=== PATIENT | female | born 2000 | race Caucasian/White ===

== ENCOUNTER 2023-02-04 20:46 | Inpatient (IN) | payer MEDICAID, SELFPAY ==
[2023-02-04 20:47] VITALS: BP 146/74; PULSE 86; RESP 18; TEMP 36.7; O2SAT 99; BMI 33.6
--- NOTE | 2023-02-04 20:58 | EDS_ITS ---
HPI History of Present Illness Chief Complaint: Substance Abuse Narrative Narrative: Patient is requesting detox from fentanyl, she uses daily, she was seen and given a prescription for buprenorphine and naloxone however she does not trust herself to go home. She did use today. She has no somatic complaints. She is denying , she is actually on her menstrual cycle. PFSH PFSH Allergy/AdvReac Type Severity Reaction Status Date / Time No Known Allergies Allergy Verified 02/04/23 20:49 ROS ROS ED ROS Narrative Past medical history: Reviewed Medications: Reviewed Social history: Noncontributory Review of systems: All systems negative except as indicated General: No fever Eyes: No visual changes ENT: No upper airway congestion, normal voice Neck: No neck pain Cardiovascular: No chest pain Respiratory: No shortness of breath or cough Gastrointestinal: No abdominal pain, nausea vomiting or diarrhea Genitourinary: No dysuria Musculoskeletal: Denies myalgias no difficulty with ambulation Skin: No rash Neurological: No memory loss, confusion or any focal weakness Psych: No recent behavioral changes Hematologic: No easy bleeding or easy bruising EXAM Physical Exam Narrative Exam Narrative: Physical exam General: Well nourished, Well developed, No Acute Distress, smells of THC on her Head: Normocephalic, Atraumatic Eyes: Conjunctiva not pale ENT: Moist mucous membranes Neck: Supple, Nontender, No lymphadenopathy Cardiovascular: Regular rate, Regular rhythm Respiratory: No distress, CTA bilaterally Abdomen: Soft, Nontender, Nondistended Back: Nontender, Normal Inspection. Negative for: CVA tenderness Extremities: Nontender, No edema Skin: Normal color, No rash Neurological: Alert, Normal Strength, Normal Sensation Psychological: Normal affect Const Vital Signs: 02/04/23 20:47 Temperature 98.0 F Temperature Source Temporal Pulse Rate 86 Respiratory Rate 18 Blood Pressure 146/74 H Blood Pressure Mean 98 Pulse Ox 99 Oxygen Delivery Method Room Air MDM MDM MDM Narrative Medical decision making narrative: Patient will be medically cleared and screened for toxin alcohol. At this time she is requesting detox which our hospital does offer. I will call the hospitalist evaluation. She has no history of trauma therefore CT of the head is not warranted. At this time she has normal vitals and does not appear in acute withdrawal therefore I will not treat her withdrawal at this time. Discharge Plan Triage Chief Complaint: Substance Abuse ED Provider: Sanjeev Pond Dx/Rx/DC Orders Clinical Impression: Desire for detoxification, Opiate addiction, Drug abuse Primary Care Provider: NOT,DEFINED Referrals: NOT,DEFINED [Primary Care Provider] - Disposition Disposition: Acute Care Hospital [facility]
[2023-02-04 21:31] LABS: Absolute Lymphocyte Count 1.13 X10^3/uL (0.83-4.51); Absolute Neutrophil Count 5.4 X10^3/uL (2.0-7.7); Basophil# 0.01 X10^3/uL; Basophil% 0.1 % (0-1); Eosinophil# 0.03 X10^3/uL; Eosinophils% 0.4 % (0-5); Hematocrit 33.5 % (37-47); Hemoglobin 10.3 g/dL (12.0-15.0); Lymphocyte # 1.13 X10^3/ul (0.83-4.51); Lymphocyte % 16.3 % (19-41); Mean Corp Hgb Conc 30.7 g/dL (32-36); Mean Corpuscular Hgb 24.8 pg (27.0-32.0); Mean Corpuscular Volume 80.7 fL (81-99); Mean Platelet Vol. 10.5 fl (6.2-12.0); Monocyte# 0.31 X10^3/uL; Monocyte% 4.5 % (0-10); NRBC Flagged by Analyzer 0 % (0-5); Neutrophil # 5.44 X10^3/uL (2.7-7.7); Neutrophil % 78.4 % (47-70); Platelet Count 230 K/mm3 (150-450); Red Blood Count 4.15 M/mm3 (4.2-5.4); White Blood Count 6.9 K/mm3 (4.4-11.0)
[2023-02-04 21:43] LABS: Amphetamine Urine VISTA NEGATIVE (<1000 ng/mL); Barbiturate Urine VISTA NEGATIVE (< 200 ng/mL); Benzodiazepine Urine VISTA NEGATIVE (< 200 ng/mL); Cocaine Urine VISTA POSITIVE (< 300 ng/mL); Ecstacy Urine VISTA NEGATIVE (< 500 ng/mL); Methadone Urine VISTA NEGATIVE (< 300 ng/mL); PCP Urine VISTA NEGATIVE (< 25 ng/mL); THC Urine VISTA POSITIVE (< 50 ng/mL); Vista UDS pH Range 6
[2023-02-04 21:44] LABS: Anion Gap 8 (5-15); BUN 19 mg/dL (7-18); BUN/Creat Ratio 18.8 RATIO (10-20); Calcium,Total 8.8 mg/dL (8.5-10.1); Chloride 105 mmol/L (98-107); Creatinine, Serum 1.01 mg/dL (0.55-1.02); EST Glomerular Filtration Rate 72 mL/min (>60); Est Glom Filt Rate - Afr Amer 87 mL/min (>60); Estimated Creatinine Clearance 71.66 ml/min; Glucose 80 mg/dL (74-106); Potassium 3.7 mmol/L (3.5-5.1); Sodium Level 141 mmol/L (136-145)
[2023-02-04 21:56] LABS: Internal QC Validated? YES +Cl - CLEAR BKGD; Pregnancy, Serum, hCG Quali. NEGATIVE Negative
[2023-02-04 22:04] LABS: Alcohol, Blood (Medical)-Serum < 3.0 mg/dL
--- NOTE | 2023-02-04 22:08 | PCM.HP.STD ---
HPI - General General Date of Admission: 02/04/23 Date of Service: 02/04/23 Chief Complaint: Desire for detoxification HPI Narrative MARY KELLY, is a 22 F with a significant history of opiate who presents to the emergency department for help with opioid detoxification. Patient has been using fentanyl. Reportedly she smokes fentanyl and the last time of smoking the fentanyl was the night before presentation. She started smoking fentanyl 3 weeks ago since her mom's who has passed has a birthday coming up. Of note patient went to the [facility] in [place], [place] where she was giving Subutex. However because the [facility] is outpatient she did not want so she proceeded to the emergency department of [facility] for an inpatient program.. She reports smoking about half a gram of fentanyl daily. She reports withdrawal symptoms of tingling sensation all over her body. [facility] Medical History no medical history no medical history Home Medications NK 02/04/23 [History Last Taken Unknown] Allergy/AdvReac Type Severity Reaction Status Date / Time No Known Allergies Allergy Verified 02/04/23 20:49 Family History other other (She denies knowledge of family medical history and does not want to talk about what killed her mom.) Surgical History (Updated 02/04/23 @ 22:[address] Jose Hilton MD) H/O elbow surgery Social History Smoking Status: Current every day smoker tobacco type: cigarettes ROS ROS Narrative Pertinent positives and pertinent negatives as noted in HPI. All other systems were reviewed and are negative Vital Signs Vital Signs Vital Signs: 02/04/23 20:47 Temperature 98.0 F Temperature Source Temporal Pulse Rate 86 Respiratory Rate 18 Blood Pressure 146/74 H Blood Pressure Mean 98 Pulse Ox 99 Oxygen Delivery Method Room Air Weight Weight: 86.2 kg Body Mass Index (BMI) 33.6 Physical Exam Narrative Physical exam: General: Well-nourished, well-developed. Head: Normocephalic, atraumatic, no tenderness Eyes: Vision is grossly intact. EOMI ENT, no trauma, moist mucous membranes, no rhinorrhea Neck: Nontender, No thyromegaly. CVS: Regular rate and rhythm. S1-S2 present. No murmur, gallop or rub. Respiratory : clear to auscultation bilaterally, chest wall nontender Abdomen: Soft, nontender, nondistended, normal bowel sounds, no masses : Deferred Back: Nontender, no CVA tenderness, no midline spinal tenderness, deformities, step-offs Extremities: Nontender full range of motion, no trauma Skin: Normal color, no trauma, abrasions Neuro: Alert, oriented, cranial nerves II through XII grossly intact. Psychiatry: Normal mood. Normal affect. Not depressed. Not anxious. Results Lab / Micro Data Attestation: I reviewed the patient's lab results. 02/04/23 21:25 02/04/23 21:25 Labs: Laboratory Results - last 24 hr 02/04/23 21:05: Urine Opiates Screen POSITIVE H, Urine Methadone Screen NEGATIVE, Ur Barbiturates Screen NEGATIVE, Ur Phencyclidine Scrn NEGATIVE, Ur Amphetamines Screen NEGATIVE, MDMA (Ecstasy) Screen NEGATIVE, U Benzodiazepines Scrn NEGATIVE, Urine Cocaine Screen POSITIVE H, U Cannabinoids Screen POSITIVE H, Ur Drug Screen Comment 02/04/23 21:25: WBC 6.9, RBC 4.15 L, Hgb 10.3 L, Hct 33.5 L, MCV 80.7 L, MCH 24.8 L, MCHC 30.7 L, RDW Std Deviation 44.0 H, RDW Coeff of [place] 15.0 H, Plt Count 230, MPV 10.5, Immature Gran % (Auto) 0.300, Neut % (Auto) 78.4 H, Lymph % (Auto) 16.3 L, [place] % (Auto) 4.5, Eos % (Auto) 0.4, Baso % (Auto) 0.1, Absolute Neuts (auto) 5.4, Absolute Lymphs (auto) 1.13, Nucleated RBC % 0, Sodium 141, Potassium 3.7, Chloride 105, Carbon Dioxide 28.0, Anion Gap 8, BUN 19 H, Creatinine 1.01, Estim Creat Clear Calc 71.66, Est GFR (MDRD) Af Amer 87, Est GFR (MDRD) Non-Af 72, BUN/Creatinine Ratio 18.8, Glucose 80, Calcium 8.8, Serum , Qual NEGATIVE, Ethyl Alcohol < 3.0 Assessment & Plan Assessment/Plan (1) Desire for detoxification: (2) Opiate addiction: QUALIFIERS: Substance use status: uncomplicated Qualified Code(s): F11.20 - Opioid dependence, uncomplicated (3) Drug abuse: PLAN: Plan Opioid dependence and withdrawal Urine culture: Showed opiates, cocaine and cannabinoids screen. Patient denies use of cocaine use indicating that he might of come from smoking fentanyl. Patient will be started on Subutex and other adjunctive medications: Gabapentin as needed; dicyclomine as needed; Vistaril as needed; methocarbamol as needed; clonidine as needed; Imodium as needed; trazodone as needed and Zofran as needed. Monitor COWS and CINA score Tobacco abuse Counseled Decline nicotine patch prescription DVT prophylaxis Low risk Encourage to ambulate CODE STATUS: DNR CCA with intubation. Different CODE STATUS was discussed with this 22-year-old patient. However she opted for DNR CCA with intubation. Time spent in the patient's overall evaluation,decision-making process, review of diagnostic data, adjustment of management, discussion with other providers, nursing nursing and ancillary staff involved in patient's care documentation, 42 minutes. Charges/Coding Visit Charges Inpatient E&M: 77937 Init Hosp L2
[2023-02-04 23:05] VITALS: BP 112/63; PULSE 70; RESP 14; TEMP 37; O2SAT 98
[2023-02-04 23:32] VITALS: BMI 31.5
[2023-02-04 23:38] VITALS: BP 110/65; PULSE 58; RESP 18; TEMP 36.9; O2SAT 98
[2023-02-05 05:00] VITALS: BP 122/69; PULSE 59; RESP 16; TEMP 36.6; O2SAT 98
[2023-02-05 06:51] VITALS: PULSE 58
[2023-02-05 08:30] VITALS: BP 132/84; PULSE 61; RESP 14; TEMP 36.2; O2SAT 97
--- NOTE | 2023-02-05 09:22 | PCM.PN.HOSP ---
Reason for Visit Reason for Visit: Diagnoses Opioid dependence, uncomplicated (02/04/23) Other psychoactive substance abuse, uncomplicated (02/04/23) Subjective Subjective Patient lying in bed, reports she has been getting achy and having belly cramping Objective Data Objective Data Vital Signs: Vital Signs Temp Pulse Resp BP Pulse Ox O2 Del Method 97.8 F 58 L 16 122/69 H 98 Room Air 02/05/23 05:00 02/05/23 06:51 02/05/23 05:00 02/05/23 05:00 02/05/23 05:00 02/05/23 05:00 Oxygen Delivery Method Room Air Weight: 86 kg Body Mass Index (BMI) 31.5 Lab / Micro Data 02/04/23 21:25 02/04/23 21:25 Labs: Laboratory Results - last 24 hr 02/04/23 21:05: Urine Opiates Screen POSITIVE H, Urine Methadone Screen NEGATIVE, Ur Barbiturates Screen NEGATIVE, Ur Phencyclidine Scrn NEGATIVE, Ur Amphetamines Screen NEGATIVE, MDMA (Ecstasy) Screen NEGATIVE, U Benzodiazepines Scrn NEGATIVE, Urine Cocaine Screen POSITIVE H, U Cannabinoids Screen POSITIVE H, Ur Drug Screen Comment 02/04/23 21:25: WBC 6.9, RBC 4.15 L, Hgb 10.3 L, Hct 33.5 L, MCV 80.7 L, MCH 24.8 L, MCHC 30.7 L, RDW Std Deviation 44.0 H, RDW Coeff of [place] 15.0 H, Plt Count 230, MPV 10.5, Immature Gran % (Auto) 0.300, Neut % (Auto) 78.4 H, Lymph % (Auto) 16.3 L, [place] % (Auto) 4.5, Eos % (Auto) 0.4, Baso % (Auto) 0.1, Absolute Neuts (auto) 5.4, Absolute Lymphs (auto) 1.13, Nucleated RBC % 0, Sodium 141, Potassium 3.7, Chloride 105, Carbon Dioxide 28.0, Anion Gap 8, BUN 19 H, Creatinine 1.01, Estim Creat Clear Calc 71.66, Est GFR (MDRD) Af Amer 87, Est GFR (MDRD) Non-Af 72, BUN/Creatinine Ratio 18.8, Glucose 80, Calcium 8.8, Serum , Qual NEGATIVE, Ethyl Alcohol < 3.0 Physical Exam Narrative General: Alert, oriented, no apparent distress HEENT: Atraumatic, normocephalic Eyes: extraocular movements grossly intact Neck: Supple Respiratory: normal respiratory effort Cardiovascular: no edema appreciated GI: nondistended Extremities: Moving all extremities Neuro: No overt focal neurological deficits Psych: Cooperative Assessment & Plan Assessment/Plan (1) Desire for detoxification: (2) Opiate addiction: QUALIFIERS: Substance use status: uncomplicated Qualified Code(s): F11.20 - Opioid dependence, uncomplicated (3) Drug abuse: PLAN: Plan #opioid dependence and withdrawal -UDS: Showed opiates, cocaine and cannabinoids screen. Patient denies use of cocaine use indicating that he might of come from smoking fentanyl. -Patient will be started on Subutex and other adjunctive medications: Gabapentin as needed; dicyclomine as needed; Vistaril as needed; methocarbamol as needed; clonidine as needed; Imodium as needed; trazodone as needed and Zofran as needed. -Monitor COWS and CINA score -7/20: Has not yet scored high enough to start the Subutex taper. Continue supportive/symptomatic care Tobacco abuse Counseled Decline nicotine patch prescription DVT prophylaxis Low risk Encourage to ambulate Charges/Coding Visit Charges Inpatient E&M: 33811 [facility] Hosp L1
[2023-02-05] MEDS: Gabapentin 300 MG Capsule PO (14:13)
[2023-02-05] MEDS: hydrOXYzine PAM 25 MG Capsule 50 MG PO (14:13)
[2023-02-05 16:45] VITALS: BP 121/66; PULSE 67; RESP 14; TEMP 36.7; O2SAT 98
[2023-02-05 19:44] VITALS: BP 120/87; PULSE 55; RESP 16; TEMP 36.6; O2SAT 100
[2023-02-05] MEDS: Methocarbamol 750 MG Tablet 1500 MG PO (20:26)
[2023-02-05] MEDS: Buprenorphine HCl 2 MG TAB.SUBL 4 MG SL (20:26)
[2023-02-05] MEDS: MELATONIN 3 MG TABLET PO (20:27)
[2023-02-05] MEDS: traZODone 100 MG Tablet PO (20:27)
[2023-02-05 21:50] VITALS: PULSE 55
[2023-02-06 05:06] VITALS: BP 117/73; PULSE 65; RESP 16; TEMP 36.8; O2SAT 99
[2023-02-06] MEDS: Buprenorphine HCl 2 MG TAB.SUBL 4 MG SL ×2 (05:11→12:08)
[2023-02-06 10:03] VITALS: BP 119/61; PULSE 71; RESP 18; TEMP 36.8; O2SAT 100
--- NOTE | 2023-02-06 10:38 | PN.HOSP_ITS ---
Reason for Visit Reason for Visit: Diagnoses Opioid dependence, uncomplicated (02/04/23) Other psychoactive substance abuse, uncomplicated (02/04/23) Subjective Subjective Feeling better now that Subutex has been started Objective Data Objective Data Vital Signs: Vital Signs Temp Pulse Resp BP Pulse Ox O2 Del Method 98.3 F 71 18 119/61 100 Room Air 02/06/23 10:03 02/06/23 10:03 02/06/23 10:03 02/06/23 10:03 02/06/23 10:03 02/06/23 10:03 Oxygen Delivery Method Room Air Weight: 86 kg Body Mass Index (BMI) 31.5 Intake & Output: Intake and Output for Last 24 Hours 02/04/23 02/05/23 02/06/23 23:59 23:59 23:59 Intake Total 200 / 200 600 / 600 Balance 200 / 200 600 / 600 Lab / Micro Data 02/04/23 21:25 02/04/23 21:25 Physical Exam Narrative General: Alert, oriented, no apparent distress HEENT: Atraumatic, normocephalic Eyes: extraocular movements grossly intact Neck: Supple Respiratory: normal respiratory effort Cardiovascular: no edema appreciated GI: nondistended Extremities: Moving all extremities Neuro: No overt focal neurological deficits Psych: Cooperative Assessment & Plan Assessment/Plan (1) Desire for detoxification: (2) Opiate addiction: QUALIFIERS: Substance use status: uncomplicated Qualified Code (s): F11.20 - Opioid dependence, uncomplicated (3) Drug abuse: PLAN: Plan #opioid dependence and withdrawal -UDS: Showed opiates, cocaine and cannabinoids screen. Patient denies use of cocaine use indicating that he might of come from smoking fentanyl. -Patient will be started on Subutex and other adjunctive medications: Gabapentin as needed; dicyclomine as needed; Vistaril as needed; methocarbamol as needed; clonidine as needed; Imodium as needed; trazodone as needed and Zofran as needed. -Monitor COWS and CINA score -02/05: Has not yet scored high enough to start the Subutex taper. Continue supportive/symptomatic care -02/06: Feeling much better now that Subutex taper started, continue taper Tobacco abuse Counseled Decline nicotine patch prescription DVT prophylaxis Low risk Encourage to ambulate Charges/Coding Visit Charges Inpatient E&M: 88138 [facility] [place] Hosp L1
[2023-02-06] MEDS: Ondansetron 8 MG Tablet PO (11:38)
[2023-02-06 14:00] VITALS: BP 119/68; PULSE 68; RESP 18; TEMP 37; O2SAT 100
--- NOTE | 2023-02-06 17:33 | NURSING ---
Pt called [employer] and asked for her AMA papers. This RN took them to her and she signed them and opened the totes and pt left.
== END 2023-02-06 17:34 | disposition left against medical advice (07) | DRG 770 ==
LOC: ED 21:23 → MS3 22:41
PROVIDERS: Admitting Provider Hospitalist; Emergency Provider Emergency Medicine; Visit Provider Internal Medicine
DX: F11.23 Opioid dependence with withdrawal (principal); F17.210 Nicotine dependence, cigarettes, uncomplicated; Z66 Do not resuscitate; Z53.29 Procedure and treatment not carried out because of patient's decision for other reasons
CPT/HCPCS: 80048; 80307; 82077; 84703; 85025; 99283